=== PATIENT | female | born 1960 | race Caucasian/White ===

== ENCOUNTER 2020-04-28 13:53 | Emergency (ER) | payer BC ==
[~2020-04-28] VITALS: Ht 157.5 cm; Wt 90.9 kg
[2020-04-28] MEDS ORDERED: VERA240C PO (14:02)
[2020-04-28] MEDS ORDERED: DULO1CAP6 PO (14:02)
[2020-04-28] MEDS ORDERED: ESCI20TA PO (14:02)
[2020-04-28] MEDS ORDERED: CELE1CAP4 PO (14:02)
--- NOTE | 2020-04-28 16:27 | REP ---
REASON: Trauma. PRIORS: None. There is a trimalleolar fracture with associated soft tissue swelling and minimal if any real displacement. Plantar and retrocalcaneal heel spurs are also present. There is diffuse soft tissue swelling. The mortise is intact. IMPRESSION: Trimalleolar fracture as described above with other findings. Electronically Signed by Blake Quach DO 04/28/2020 04:55 P
[2020-04-28 16:35] VITALS: BP 124/73
== END 2020-04-28 16:37 | disposition home or self-care (01) ==
LOC: M ED 13:53
DX: S82.851A Displaced trimalleolar fracture of right lower leg, initial encounter for closed fracture (principal); W01.0XXA Fall on same level from slipping, tripping and stumbling without subsequent striking against object, initial encounter; Y92.9 Unspecified place or not applicable; Y93.9 Activity, unspecified; Y99.9 Unspecified external cause status; E78.5 Hyperlipidemia, unspecified; Z79.899 Other long term (current) drug therapy; Z88.0 Allergy status to penicillin